=== PATIENT | female | born 1960 | race African-American/Black ===

== ENCOUNTER 2019-12-01 15:05 | Inpatient (IN) | payer MEDICAID ==
[~2019-12-01] VITALS: Ht 144.8 cm; Wt 54.2 kg
[2019-12-01] MEDS ORDERED: SODIUM CHLORIDE 0.9% 1,000 ML IV ONE (16:34)
[2019-12-01] MEDS ORDERED: NITROGLYCERIN 0.4MG TABLET SL SL PRN ×2 (16:45→19:30)
[2019-12-01] MEDS ORDERED: ASPIRIN 81MG TABLET PO ONE (16:45)
[2019-12-01] MEDS ORDERED: CEFTRIAXONE 1 G PREMIX 50 ML IV ONE (16:45)
[2019-12-01] MEDS ORDERED: ACETAMINOPHEN 325MG TABLET PO ONE (16:45)
[2019-12-01] MEDS ORDERED: AZITHROMYCIN 500 MG in DEXT 5% WATER 250 ML IV ONE (16:45)
[2019-12-01 17:54] LABS: CLARITY URINE CLOUDY (CLEAR); COLOR URINE YELLOW (YELLOW); KETONES URINE TRACE (NEGATIVE); LEUKOCYTE ESTERASE URINE 3+ (NEGATIVE); NITRITE URINE POSITIVE (NEGATIVE); OCCULT BLOOD URINE 1+ (NEGATIVE); PROTEIN URINE 2+ (NEGATIVE); SPECIFIC GRAVITY URINE 1.018 (1.005-1.030)
[2019-12-01 18:23] LABS: BASOPHILS % 0.3 % (0.0-2.0); EOSINOPHILS % 0.1 % (0.0-5.0); HEMATOCRIT. 38.3 % (36.0-48.0); HEMOGLOBIN. 12.4 g/dL (12.0-16.0); MEAN CORPUSCULAR VOLUME 86.7 fL (81.0-99.0); MEAN PLATELET VOLUME 10.6 fl (7.4-10.4); MONOCYTES % 10.7 % (2.0-8.0); NEUTROPHILS % 74.9 % (40.0-76.0); PLATELET 201 x1000/uL (130-400); RED BLOOD CELL COUNT 4.41 mill/uL (4.2-5.4); RED CELL DISTRIBUTION WIDTH 13.3 % (11.6-14.6)
[2019-12-01 18:30] LABS: CHLORIDE 103 mEq/L (98-107)
[2019-12-01 18:33] LABS: INR 1.1; PARTIAL THROMBOPLASTIN TIME 36.2 sec (23.4-31.0); PROTHROMBIN TIME 11.4 sec (9.6-11.0)
[2019-12-01] MEDS ORDERED: DOCUSATE SODIUM 100MG CAPSULE PO PRN (19:30)
[2019-12-01] MEDS ORDERED: LORAZEPAM 0.5MG TABLET PO PRN (19:30)
[2019-12-01] MEDS ORDERED: ONDANSETRON HCL 4MG/2ML INJ IV PRN (19:30)
[2019-12-01] MEDS ORDERED: ACETAMINOPHEN 325MG TABLET PO PRN ×2 (19:30)
[2019-12-01] MEDS ORDERED: HALOPERIDOL LACTATE 5MG/ML VIAL IM PRN (19:30)
[2019-12-01] MEDS ORDERED: ZOLPIDEM TARTRATE 5MG TABLET PO PRN (19:30)
[2019-12-01] MEDS ORDERED: KETOROLAC 15MG/ML VIAL IV PRN (19:30)
[2019-12-01] MEDS ORDERED: MAGNESIUM/ALUMINUM HYDROXIDE/SIMETHICONE 30ML UDC PO PRN (19:30)
[2019-12-01] MEDS ORDERED: CLONIDINE 0.1MG TABLET PO PRN (19:30)
[2019-12-01] MEDS ORDERED: NA PHOS,M-B/NA PHOS,DI-BA ENEMA 118ML PR PRN (19:30)
[2019-12-01] MEDS ORDERED: IPRATROPIUM/ALBUTEROL 0.5-3(2.5)MG/3ML NEB ORI PRN (19:30)
[2019-12-01] MEDS ORDERED: GUAIFENESIN 200MG/10ML SUGAR FREE UDC PO PRN (19:30)
[2019-12-01] MEDS: FAMOTIDINE 20MG TABLET PO SCH (23:17)
[2019-12-01] MEDS: ASCORBIC ACID 500 MG TABLET PO SCH (23:17)
[2019-12-01] MEDS: ENOXAPARIN 40MG/0.4ML SYR SUBCUT SCH (23:17)
[2019-12-02 01:25] LABS: CREATINE KINASE 196 IU/L (26-192)
[2019-12-02 01:26] LABS: CREATINE KINASE MB FRACTION < 1.0 ng/mL (0.5-3.6)
[2019-12-02 06:17] LABS: LDL CHOLESTEROL 83 mg/dL (5-100)
[2019-12-02 06:18] LABS: HDL CHOLESTEROL 53 mg/dL (40-59)
[2019-12-02 06:19] LABS: CREATINE KINASE 174 IU/L (26-192)
[2019-12-02 06:20] LABS: CREATINE KINASE MB FRACTION < 1.0 ng/mL (0.5-3.6)
[2019-12-02] MEDS: ASPIRIN 81MG EC TABLET PO SCH (09:47)
[2019-12-02] MEDS: ZINC SULFATE 220 MG ( 50 ) CAPSULE PO SCH (09:47)
[2019-12-02] MEDS: FAMOTIDINE 20MG TABLET PO SCH ×2 (09:48→21:19)
[2019-12-02] MEDS: ASCORBIC ACID 500 MG TABLET PO SCH ×2 (09:48→21:19)
[2019-12-02] MEDS ORDERED: TOPI50TA PO (17:30)
[2019-12-02 17:40] VITALS: BP 116/72
[2019-12-02] MEDS ORDERED: CEFTRIAXONE 1,000 MG in DEXTROSE 5% WATER 50 ML IV SCH ×2 (18:00→20:00)
[2019-12-02] MEDS ORDERED: AZITHROMYCIN 500 MG in DEXT 5% WATER 250 ML IV SCH (20:00)
[2019-12-02] MEDS: ENOXAPARIN 40MG/0.4ML SYR SUBCUT SCH (21:19)
[2019-12-02] MEDS ORDERED: QUET25TA PO (22:53)
[2019-12-03] VITALS: BP 106/68
[2019-12-03 04:00] VITALS: BP 113/65
[2019-12-03 08:00] VITALS: BP 109/63
[2019-12-03] MEDS: ASCORBIC ACID 500 MG TABLET PO SCH (09:21)
[2019-12-03] MEDS: ASPIRIN 81MG EC TABLET PO SCH (09:21)
[2019-12-03] MEDS: ZINC SULFATE 220 MG ( 50 ) CAPSULE PO SCH (09:21)
[2019-12-03] MEDS: FAMOTIDINE 20MG TABLET PO SCH (09:40)
[2019-12-03 12:00] VITALS: BP_SYST 114; BP_SYST 154; BP_DIAS 72; BP_DIAS 77
[2019-12-03 15:59] VITALS: BP 114/72
== END 2019-12-03 18:32 | disposition home or self-care (01) | DRG 720 ==
LOC: ER 15:05 → EDBEDREQTM 19:38 → EDBEDREQ 19:38 → EDBEDREQSVC 20:07 → EDBEDREQTM 20:07 → MICUSO 22:18 → 7WST 12-02 15:37 → 5WST 12-02 23:53
PROVIDERS: ADMIT Internal Medicine; ATTEND Internal Medicine
DX: A41.50 Gram-negative sepsis, unspecified (principal); J96.00 Acute respiratory failure, unspecified whether with hypoxia or hypercapnia; N39.0 Urinary tract infection, site not specified; E44.1 Mild protein-calorie malnutrition; A09 Infectious gastroenteritis and colitis, unspecified; J06.9 Acute upper respiratory infection, unspecified; F20.9 Schizophrenia, unspecified; F32.9 Major depressive disorder, single episode, unspecified; Z20.828 Contact with and (suspected) exposure to other viral communicable diseases; Z68.25 Body mass index [BMI] 25.0-25.9, adult
CPT/HCPCS: 36415; 71045; 80053; 80061; 81003; 82550; 82553; 83036; 83605; 84145; 84484; 85025; 87077; 87186; 87635; 93005; 96365; 99285; J0456; J0696; J1650; J2405; J7030; J7060